=== PATIENT | male | born 1990 | race Caucasian/White ===

== ENCOUNTER 2020-08-04 01:51 | Emergency (ER) | payer SELFPAY ==
[~2020-08-04] VITALS: Ht 183 cm; Wt 90.7 kg
[~2020-08-04 01:51] MED LIST: ACHD5005 PO; DXM4T PO
[2020-08-04 01:57] VITALS: BP 145/85
--- NOTE | 2020-08-04 02:05 | NUR ---
Ice pack applied to affected area. ankle elevated on pillow.
[2020-08-04] MEDS ORDERED: RX-NAPROXEN (NAPROSYN) 250 MG TAB PPK#4 PO STA (02:22)
[2020-08-04] MEDS ORDERED: NAPR500T8 PO (02:25)
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
--- NOTE | 2020-08-04 07:14 | Diagnostic Imaging Report ---
EXAMINATION: Right ankle radiographs, 3 views. COMPARISON: None. HISTORY: 30-year-old male, ankle pain. Injury. FINDINGS: There is a crescentic ossification adjacent to the lateral talus with adjacent soft tissue swelling consistent with an acute mildly displaced small avulsion related fracture. There is a displaced osteochondral lesion of the lateral talar dome with the ossified osteochondral lesion measuring 12 x 4 mm in size. There are well-corticated ossifications projecting in the region of the anterior aspect of the tibiotalar joint which may relate to intra-articular bodies. There is no large tibiotalar joint effusion. There is a lucency in the dorsal aspect of the navicular on the lateral view which is questionable for a nondisplaced navicular fracture. There is no identified radiopaque foreign body. IMPRESSION: 1. Acute mildly displaced avulsion related fracture involving the lateral talus. 2. Displaced osteochondral lesion of the lateral talar dome. 3. Ossified bodies projecting in the region of the anterior aspect of the tibiotalar joint which may relate to intra-articular bodies. No current large tibiotalar joint effusion. 4. Questionable nondisplaced fracture of the dorsal aspect of the navicular. Recommend correlation for focal pain at this site. Dictated by: Dictated on workstation # [id number]
--- NOTE | 2020-08-04 07:15 | Diagnostic Imaging Report ---
EXAMINATION: Right tibia and fibula radiographs, 2 views, 4 images. COMPARISON: None. HISTORY: 30-year-old male, right ankle pain and swelling. FINDINGS: There is soft tissue swelling adjacent to the lateral malleolus. There is a small crescentic ossification adjacent to the lateral talus most likely relating to a small mildly displaced avulsion related fracture. There is abnormal contour of the lateral talar dome consistent with an osteochondral lesion. There is an ossification projecting in the anterior aspect of the tibiotalar joint measuring up to approximately 7 x 3 mm in size with a smaller adjacent ossification. This potentially could reflect intra-articular bodies. There is no large tibiotalar joint effusion. There is no identified acute fracture of the tibia or fibula. IMPRESSION: 1. Acute mildly displaced avulsion related fracture involving the lateral talus. 2. Sizable osteochondral lesion of the talar dome with displacement of the osteochondral lesion. 3. Potential ossified intra-articular bodies in the anterior aspect of the tibiotalar joint without tibiotalar joint effusion. 4. No identified acute fracture of the tibia or fibula. Dictated by: Dictated on workstation # [id number]
== END 2020-08-04 02:31 | disposition home or self-care (01) ==
LOC: EDUNIT# 01:51 → ER 01:55
DX: S92.151A Displaced avulsion fracture (chip fracture) of right talus, initial encounter for closed fracture (principal); F17.210 Nicotine dependence, cigarettes, uncomplicated; Z82.61 Family history of arthritis; Z82.49 Family history of ischemic heart disease and other diseases of the circulatory system; Z83.3 Family history of diabetes mellitus; Z80.8 Family history of malignant neoplasm of other organs or systems; Z88.0 Allergy status to penicillin; Y04.2XXA Assault by strike against or bumped into by another person, initial encounter
CPT/HCPCS: 73590; 73610; 99282; L2114